=== PATIENT | female | born 1960 | race Caucasian/White ===

== ENCOUNTER 2022-03-16 20:32 | Emergency (ER) | payer OTHER ==
[~2022-03-16] VITALS: Ht 160 cm; Wt 95.7 kg
[2022-03-16 20:55] VITALS: BP_SYST 116
--- NOTE | 2022-03-16 21:00 | NUR ---
Patient triaged and placed in waiting room. VSS and patient appears in no acute distress at this time. Accompanied by family, awaiting available bed, and MD notified of need for MSE.
--- NOTE | 2022-03-16 21:25 | NUR ---
Patient wheeled to bed 5 for evaluation and treatment
[2022-03-16] MEDS ORDERED: APIX5TAB4 PO (21:29)
[2022-03-16] MEDS ORDERED: NACL 0.9% 1,000 ML IV ONE (21:30)
[2022-03-16] MEDS ORDERED: ONDANSETRON 4 MG ODT TAB PO ONE (21:30)
[2022-03-16] MEDS ORDERED: FLEC50TA2 PO (21:41)
[2022-03-16] MEDS ORDERED: METO25TA3 PO (21:41)
[2022-03-16 21:48] LABS: BASOPHILS # (AUTO) 0.1 K/uL (0.0-0.2); BASOPHILS % (AUTO) 0.5 % (0.0-2.0); EOSINOPHILS # (AUTO) 0.2 K/uL (0.0-0.4); EOSINOPHILS % (AUTO) 1.3 % (0.0-4.0); HEMATOCRIT 39.8 % (36-48); HEMOGLOBIN 12.4 g/dL (12.0-16.0); LYMPHOCYTES # (AUTO) 2.4 K/uL (1.0-5.5); LYMPHOCYTES % (AUTO) 19.8 % (20.5-51.5); MEAN CORPUSCULAR HEMOGLOBIN 20 pg (27-31); MEAN CORPUSCULAR HGB CONC 31 % (32-36); MEAN CORPUSCULAR VOLUME 64 fL (79.0-98.0); MONOCYTES # (AUTO) 0.7 K/uL (0.0-1.0); MONOCYTES % (AUTO) 5.9 % (1.7-9.3); NEUTROPHILS # (AUTO) 8.6 K/uL (1.8-7.7); NEUTROPHILS % (AUTO) 72.5 % (40.0-70.0); PLATELET COUNT (AUTO) 284 K/uL (130-430); RED BLOOD CELL COUNT(AUTO) 6.22 MIL/uL (4.2-6.2); RED CELL DISTRIBUTION WIDTH 15.2 % (9.0-15.0); WHITE BLOOD COUNT (AUTO) 11.9 K/uL (4.8-10.8)
[2022-03-16 22:03] LABS: ANION GAP 10 (5-15); CALCIUM 9.2 mg/dL (8.4-11.0); CHLORIDE 103 mmol/L (98-107); CREATININE 0.72 mg/dL (0.55-1.30); GFR AFRICAN AMERICAN 106 mL/min (>90); GLUCOSE 143 mg/dL (70-99); UREA NITROGEN, BLOOD 18 mg/dL (8-21)
[2022-03-16 22:07] LABS: ALANINE AMINOTRANSFERASE 35 U/L (12-78); ALBUMIN 3.5 g/dL (3.4-4.8); ASPARTATE AMINOTRANSFERASE 21 U/L (10-37); TOTAL BILIRUBIN 0.3 mg/dL (0.0-1.0)
[2022-03-16] MEDS ORDERED: ONDANSETRON 4 MG ODT TAB ONE (23:59)
--- NOTE | 2022-03-17 00:30 | NUR ---
Patient given written and verbal discharge instructions and verbalizes understanding. ER MD discussed with patient the results and treatment provided. Patient in stable condition. ID arm band removed. IV catheter removed intact and dressing applied. Opportunity for questions provided and answered.
[2022-03-17 00:35] VITALS: BP_SYST 135
== END 2022-03-17 00:35 | disposition home or self-care (01) ==
LOC: SED 20:32
DX: R55 Syncope and collapse (principal); R42 Dizziness and giddiness; Z79.899 Other long term (current) drug therapy
CPT/HCPCS: 99284; 96360; 71045; 80053; 85025; 84484; 36415; Q0162; J7030